=== PATIENT | male | born 1960 | race Caucasian/White ===

== ENCOUNTER 2019-12-02 08:06 | Observation (INO) | payer MEDICARE, MEDICAID, SELFPAY ==
--- NOTE | ~2019-12-02 | CT_ITS ---
EXAMINATION: CT pelvis w con DATE: 12/02/2019 11:05 INDICATION: Gluteal abscess TECHNIQUE: Computed tomography (CT) of the pelvis was performed without intravenous contrast. Automat ed exposure control and iterative reconstruction technique were employed. The dose-length product was 271.15 mGy-cm. COMPARISON: None FINDINGS: Perianal abscess centered posterior and to the left of the anus which measures 6 cm craniocaudally an d 8.6 x 5.0 cm in maximal transaxial dimensions. This includes a small curved portion of the abscess which extends from across the midline caudal to the level of the tip of the coccyx to the medial aspe ct of the inferior right gluteal cleft. The abscess appears to remain in the superficial perianal spa ce inferior to the inner coccygeal ligament which is bulged cephalad. No evident involvement of the d eeper perineopelvic spaces. There appears to be a small focus of gas distally over the expected posit ion of the left posterior wall of the anus and adjacent minute focus of gas within the perirenal flui d collection suggesting possibility of a perianal fistula to the abscess. Is normal. Prostatomegaly. The more proximal visualized bowels are normal. Small bilateral hydroceles. No pathologically enlarge d pelvic or inguinal lymphadenopathy. Moderate to severe lower lumbar facet osteoarthritis. Mild bila teral hip osteoarthritis. Small bone islands at the bilateral femoral heads. IMPRESSION: 1. 8.6 x 5.0 x 6.0 cm abscess in the left posterior superficial perianal space. Reviewed, dictated and finalized at location A. LE NURSE
--- NOTE | ~2019-12-02 | US_ITS ---
EXAMINATION: US percutaneous drain w cath DATE: 12/03/2019 13:07 INDICATION: Perianal abscess TECHNIQUE: The procedure including the risks and benefits was discussed with the patient. Risks discu ssed included bleeding including hemorrhage and bile peritonitis. Oral and written consent were obtai jennifer. The patient was confirmed to be receiving appropriate antibiotic coverage. The skin overlying t he buttock at the left side of the gluteal cleft was prepped and draped in usual sterile fashion. An esthetic was administered with 1% lidocaine subcutaneously. An 8.5 Fr catheter was inserted into the periapical fluid collection by trocar technique utilizing continuous sonographic observation. The me mirella stiffener and trocar needle were removed, and the pigtail tip was locked. Fluid was aspirated and sent for culture. The catheter was stitched to the skin with suture. Antibiotic appointment and a st erile dressing were applied. The catheter was then attached to suction drainage. There were no immedi ate complications. FINDINGS: Initial energy efficiency specialist ultrasound images demonstrate an approximately 8.1 x 5.1 cm complex loculated fluid collection with irregular lobular margins extending deep towards the perianal region. Subseque nt images demonstrate the drainage catheter advanced into the central aspect of the fluid collection. 20 mL of opaque parker purulent appearing fluid was aspirated and sent for culture. IMPRESSION: 1. Successful ultrasound-guided percutaneous abscess drainage catheter placement into an 8 x 5 cm per ianal abscess. 2. 20 mL of parker purulent appearing fluid was sent for Gram stain anaerobic and aerobic cultures. 3. The catheter will be managed by Dr. Chiu. Reviewed, dictated and finalized at location A. SURVEYOR IMPRESSION: 1. Successful ultrasound-guided percutaneous abscess drainage catheter placemen t into an 8 x 5 cm perianal abscess. 2. 20 mL of parker purulent appearing fluid was sent for Gram stain anaerobic and aerobic cultures. 3. The catheter will be managed by Dr. Chiu.
[2019-12-02 08:10] VITALS: BP 126/87; PULSE 95; RESP 17; TEMP 36.5; O2SAT 100
--- NOTE | 2019-12-02 09:16 | ED.GENADULT ---
HPI - General Adult General Chief complaint: Wound/Laceration Stated complaint: bump on butt x 2 days Time Seen by Provider: 12/02/19 08:40 Source: patient Mode of arrival: ambulatory Limitations: no limitations History of Present Illness HPI narrative: Patient presents with chief complaint of swollen painful area to the right gluteal cleft that has been present for 2 days. Patient states it is painful when he is lying or sitting on the area. Patient denies any fever, chills, nausea, vomiting, diarrhea. Patient denies having diabetes or compromised status. Patient states his only medical history is hypertension and hyperlipidemia. Patient denies a history of MRSA or prior recurrent abscesses. Related Data Home Medications Medication Instructions Recorded Confirmed lisinopril 10 mg PO DAILY 12/02/19 12/02/19 simvastatin 40 mg PO DAILY 12/02/19 12/02/19 Allergies Allergy/AdvReac Type Severity Reaction Status Date / Time Penicillins Allergy Unknown WAS CHILD, Verified 12/02/19 08:12 DOES NOT KNNOW Review of Systems Review of Systems: Narrative: CONSTITUTIONAL: Denies fever, chills, or sweats. EYES: Denies visual changes, redness, or discharge. ENT: Denies rhinorrhea, congestion, sore throat, or otalgia. CARDIOVASCULAR: Denies chest pain, palpitations, or edema. RESPIRATORY: Denies cough or dyspnea. GASTROINTESTINAL: Denies abdominal pain, nausea, vomiting, or diarrhea. GENITOURINARY: Denies dysuria or hematuria. SKIN: Reports abscess denies rash or itching. MUSCULOSKELETAL: Denies back pain, joint pain, or myalgia. NEUROLOGIC: Denies headache, numbness, dizziness, or weakness. PSYCHIATRIC: Denies anxiety or depression. 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 He wishes for his mother to be the social contact worker if he were not able to make decisions himself. Her name is Emma Cabello. He wishes to be a full code. Smoking packs per day: 1 Smoking cigarettes per day: 20.0 Years smoked: 20 Smoking pack-years: 20.00 Smoking status: Current every day smoker Tobacco type: cigarettes Alcohol intake: never Alcohol use details: denies Substance use: never Other substance usage details: denies Living arrangements: with family Additional living arrangements comments: Lives with his mother who is independent. Occupation/Education: retired Gender identity (if verbalized by the patient): Male Spiritual care concerns: No Agree to blood products: Yes Exam Narrative: Exam Narrative: GENERAL: Well-appearing, well-nourished, and in no acute distress. HEAD: Normocephalic, atraumatic. EYES: PERRLA and EOMI. ENT: Nares clear, no rhinorrhea or epistaxis. Mucous membranes moist. Oropharynx without tonsillar hypertrophy exudate or other lesions. Bilateral TMs pearly duran nonbulging NECK: Supple. No adenopathy or masses. CHEST: Clear to auscultation. No respiratory distress. No wheezes rales or rhonchi HEART: Regular rate and rhythm. Normal peripheral pulses. ABDOMEN: Soft, nontender, nondistended, normal active bowel sounds. EXTREMITIES: Normal range of motion. No edema. SKIN: abscess to right gluteal cleft palpated approx 3.5 cm feels deeper than right at surface level. Warm, dry, no rash. NEURO: No focal deficits. Alert and oriented x3. PSYCH: Normal mood and affect. Course Course Emergency Course: Bedside ultrasound to confirm location and size of abscess at bedside by Dr Lao. Abscess approx
[2019-12-02 10:30] LABS: Basophils Absolute Auto 0.1 K/mm3 (0.0-0.1); Basophils Percent Auto 0.4 % (0.2-1.2); Eosinophils Percent Auto 0.1 % (0-4.4); Hematocrit 43.9 % (42.0-52.0); Hemoglobin 14.8 g/dL (14.0-18.0); Immature Granulocyte Absolute 0.08 K/mm3 (0.00-0.031); Immature Granulocyte Percent A 0.5 % (0-0.5); Lymphocytes Absolute Auto 1.25 K/mm3 (0.9-3.2); Lymphocytes Percent Auto 8.3 % (18.3-44.2); Mean Corpuscular HGB Conc 33.7 g/dl (32-36); Mean Corpuscular Hemoglobin 32.1 pg (26-34); Mean Corpuscular Volume 95.2 fl (80-100); Mean Platelet Volume 11.7 fl (7.4-10.4); Monocytes Absolute Auto 1.4 K/mm3 (0.1-0.6); Monocytes Percent Auto 9.1 % (2.6-8.5); Neutrophils Absolute Auto 12.3 K/mm3 (1.3-6.7); Neutrophils Percent Auto 81.6 % (45.5-73.1); Platelet Count Result 158 k/mm3 (150-375); Red Blood Count 4.61 M/mm3 (4.6-6.20); Red Cell Distribution Width 11.9 % (11.5-14.5)
[2019-12-02 10:44] LABS: Alanine Aminotransferase 29 U/L (4-50); Albumin Level 3.7 g/dL (3.5-5.1); Alkaline Phosphatase 61 U/L (38-126); Aspartate Amino Transferase 32 U/L (17-59); Bilirubin,Total 1.1 mg/dL (0.2-1.3); Blood Urea Nitrogen 17 mg/dL (9-20); Calcium 8.4 mg/dL (8.4-10.2); Carbon Dioxide 25 mmol/L (22-30); Chloride 93 mmol/L (98-107); Estimated Glomerular Filt Rate > 60; Glucose 104 mg/dL (75-110); Potassium 4.4 mmol/L (3.4-5.0); Sodium 132 mmol/L (137-145)
[2019-12-02] MEDS: SODIUM CHLORIDE 0.9% IV 1,000 ML 125 ML IV CONT (12:43)
[2019-12-02 12:50] VITALS: BP 124/66; PULSE 77; RESP 16; TEMP 36.4; O2SAT 100
--- NOTE | 2019-12-02 13:02 | PM.IMHP ---
H&P: HPI History of Present Illness Chief complaint: perianal abscess Narrative: Gómez Cabello is a 59 year old male with a history of hypertension and hyperlipidemia, who presented to the emergency department with complaints of perianal pain. The patient reports first noticing symptoms 2 days ago with a sudden onset of pain. He states it was painful to walk or sit. He also felt that there was a bump on his buttock. There was nothing that would alleviate the pain and he eventually decided to present to the emergency department for further evaluation. On evaluation, he had evidence of a perianal abscess and the emergency room provider attempted a bedside ultrasound-guided incision and drainage, but was unable to reach any pocket of purulent drainage. CT scan of the pelvis was then performed and showed an 8.6 x 5.0 x 6.0 cm abscess in the left posterior superficial perianal space. White blood cell count was 15,000, otherwise labs were unremarkable. Our service was contacted for surgical evaluation of the perianal abscess. The decision was made to admit the patient for observation and start him on IV antibiotics and IV fluids. He is currently still NPO. The patient is now being seen in the emergency department. He denies any pain at this time following the local anesthetic given for the bedside procedure. He reports that sitting and walking was aggravating his pain. He denies any drainage from the bump he had felt. He denies a change in his bowel habits, diarrhea, nausea, vomiting, constipation, blood in the stool, fevers, or chills. He reports his last bowel movement was this morning. Denies a change in appetite. Reports last meal was yesterday. Denies a history of perianal abscess or any abscesses in other locations. Denies a history of MRSA. No other complaints at this time. Review of Systems Constitutional: Constitutional: Reports as per HPI, Denies chills, Denies excessive sweating, Denies fatigue, Denies fever(s) and Denies weakness Eyes: Eyes: Denies change in vision and Denies loss of vision ENT: Denies dysphagia, Denies dizziness, Denies dry mouth, Denies hearing loss and Denies lip swelling Cardiovascular: Cardiovascular: Denies chest pain, Denies syncope, Denies radiating jaw, neck or arm pain, Denies dyspnea and Denies dyspnea on exertion Respiratory: Respiratory: Denies cough, Denies dyspnea, Denies dyspnea on exertion and Denies wheezing Gastrointestinal: Gastrointestinal: Denies abdominal pain, Denies melena, Denies bloating, Denies hematochezia, Denies change in bowel habits, Denies change in stool character, Denies constipation, Denies dysphagia, Denies fecal incontinence, Denies diarrhea, Denies nausea and Denies vomiting Musculoskeletal: Musculoskeletal: Denies abnormal gait, Denies myalgias, Denies deformity, Denies joint swelling and Denies tingling Integumentary/Breasts: Skin/Breast: Reports system reviewed and no additional complaints, except as docu, Reports as per HPI and Reports other (Reports perirectal pain and bump near that area.) Neurologic: Denies abnormal gait, Denies dizziness, Denies syncope, Denies loss of vision, Denies tingling and Denies weakness Psychiatric: Psychiatric: Reports no additional psychiatric complaints, Denies anxiety and Denies depression Endocrine: Endocrine: Reports no additional endocrine complaints, Denies cold intolerance, Denies excessive sweating and Denies heat intolerance PMFSH Past Medical History Medical History (Updated 12/02/19 @ 15:58 by FELY Penny) Hyperlipidemia Hypertension Surgical History Surgical History (Updated 12/02/19 @ 13:35 by FELY Penny) No history of previous surgery Family History Family History (Updated 12/02/19 @ 13:51 by Catherine Retana RN) Other No significant family history Social History Social History Social History: The patient does not have a power of attorn
--- NOTE | 2019-12-02 13:06 | PC.NURSE ---
Report given to Radha, RN 3rd Med RN at this time. No further questions at this time.
--- NOTE | 2019-12-02 13:25 | ADMGEN ---
This patient, Gómez Cabello, was admitted to Medical Room 342-01. Patient arrived to unit per wheelchair. Patient/family oriented to hospital policies and general routines including ID bracelet, bed and alarms, visiting hours, pain management, procedures, bathroom and other care routines, personal items, smoking policy, room service/diet, and visiting hours. Valuables list has been completed. Information on how to activate the Rapid Response Team has been discussed. Patient/Family are encouraged to report perceived risks to care and to ask questions if they do not understand what they are told or what they should do.
[2019-12-02 13:37] VITALS: BP 128/71; PULSE 81; RESP 22; TEMP 35.9; O2SAT 100; BMI 24.3
[2019-12-02 22:00] VITALS: BP 103/66; PULSE 84; RESP 16; TEMP 37.4; O2SAT 98
[2019-12-03] MEDS: SODIUM CHLORIDE 0.9% IV 1,000 ML 125 ML IV CONT (04:28)
[2019-12-03 06:00] VITALS: BP 125/86; PULSE 89; RESP 22; TEMP 36.7; O2SAT 100
--- NOTE | 2019-12-03 06:10 | PC.NURSE ---
intake before midnoc
[2019-12-03 06:20] LABS: Basophils Absolute Auto 0.1 K/mm3 (0.0-0.1); Basophils Percent Auto 0.4 % (0.2-1.2); Eosinophils Percent Auto 0.2 % (0-4.4); Hemoglobin 13.6 g/dL (14.0-18.0); Immature Granulocyte Absolute 0.13 K/mm3 (0.00-0.031); Lymphocytes Absolute Auto 0.92 K/mm3 (0.9-3.2); Lymphocytes Percent Auto 7.4 % (18.3-44.2); Mean Corpuscular HGB Conc 33.2 g/dl (32-36); Mean Corpuscular Hemoglobin 31.9 pg (26-34); Mean Platelet Volume 12.2 fl (7.4-10.4); Monocytes Absolute Auto 1.2 K/mm3 (0.1-0.6); Monocytes Percent Auto 9.7 % (2.6-8.5); Neutrophils Absolute Auto 10.1 K/mm3 (1.3-6.7); Neutrophils Percent Auto 81.3 % (45.5-73.1); Platelet Count Result 158 k/mm3 (150-375); Red Blood Count 4.27 M/mm3 (4.6-6.20); Red Cell Distribution Width 11.9 % (11.5-14.5); White Blood Count 12.4 K/mm3 (4.5-10.0)
--- NOTE | 2019-12-03 09:17 | PM.PNGS ---
Progress Note: A&P Assessment and Plan (1) Perirectal abscess: Onset Date: ~12/01/19 Code(s): K61.1 - Rectal abscess Status: Acute Assessment and Plan: After rectal is rectal exam showed no palpable mucosal lesion or mass I think perhaps the best way to drain this will be percutaneous with CT guidance. I have discussed this with Dr. andriy muhammad and he will try to accomplish this today. We will then continue the patient on antibiotics and follow up as an outpatient to either remove drain or perform a examination under anesthesia, rigid sigmoidoscopy, and examination for a fistula. Will see how drainage goes and proceed from there. Most likely the patient would go home with the drain on oral antibiotics. We would adjust his antibiotics next week depending on cultures. (2) Hypertension: Onset Date: Unknown Qualifiers: Hypertension type: unspecified Qualified Code(s): I10 - Essential (primary) hypertension Code(s): I10 - Essential (primary) hypertension Status: Acute Assessment and Plan: Continue home meds (3) Hyperlipidemia: Onset Date: Unknown Qualifiers: Hyperlipidemia type: unspecified Qualified Code(s): E78.5 - Hyperlipidemia, unspecified Code(s): E78.5 - Hyperlipidemia, unspecified Status: Acute Assessment and Plan: Continue home meds Subjective Subjective Date/Time Seen: 12/03/19 09:17 Patient denies much pain this morning. States that he had 1 loose stool overnight. I specifically asked him today if he was using his finger to empty his rectum or manipulating the area. He denied this to me. However, the nurse reports to me that the aids have stated that they notice that he had stool over his fingers several times during the night. They had to use a special techniques on cleaning his fingers this morning after or before his shower. Review of Systems Constitutional: Constitutional: Reports no additional constitutional complaints ENT: Reports other (Mucous Membranes moist.) Cardiovascular: Cardiovascular: Denies dyspnea Respiratory: Respiratory: Denies pain on inspiration and Denies dyspnea Musculoskeletal: Musculoskeletal: Reports other (No calf swelling or edema) Integumentary/Breasts: Skin/Breast: Reports system reviewed and no additional complaints, except as docu Exam Const: General: cooperative, no acute distress, alert and awake Orientation/consciousness: patient oriented x3 HENMT: Mouth: Yes moist mucous membranes Other: Patient only has 1 front tooth on the right with 2 on the left. Poor dental hygiene noted. Neck: Neck: normal visual inspection Chest: Chest palpation & inspection: normal inspection of the chest Resp: Effort & Inspection: normal respiratory effort Auscultation: clear to auscultation bilaterally Cardio: Jugular venous distension: no JVD Rate: regular rate Rhythm: regular rhythm GI: Rectal Exam: visual inspection normal, normal sphincter tone (No palpable anal abnormalities.), No External hemorrhoid(s) present, No Internal hemorrhoid(s) present and No Anal fissure(s) present Other: Prostate is 2+ over 4 enlarged but soft without hard nodules Right side of rectum is unremarkable left side has perhaps slight bulging externally but no palpable rectal mass on the lining. Patient has mild tenderness when pushing toward the left side on digital rectal exam. Skin: Wounds: wounds noted (There is approximately a 2 cm wound just off the crease, left) Other: Wound mentioned above was from attempted I and D in the ER yesterday. Neuro: General: patient oriented x3 and moves all extremities Speech: normal speech Extrem: General: normal exam except as noted Psych: Mental Status: mental status grossly normal Speech and movement: Normal speech and movement present Affect: normal affect Thought content: Yes Normal thought content present Objective Data Vital Signs Vital Signs: Vital
[2019-12-03 10:26] LABS: INR 1.3; Prothrombin Time 15.4 Seconds (11.1-14.7)
[2019-12-03 14:00] VITALS: BP 101/61; PULSE 79; RESP 16; TEMP 37; O2SAT 99
--- NOTE | 2019-12-03 16:34 | PM.DS ---
DS: Diagnosis Admitting Diagnosis Admitting Diagnosis: Perirectal abscess Discharge Diagnosis (1) Perirectal abscess: Onset Date: ~12/01/19 Code(s): K61.1 - Rectal abscess Status: Acute Assessment and Plan: this was somewhat unusual a deep abscess that was presenting in the soft tissues posterior into the left of the rectum. Initial attempted I and D in the ER did not lead to appropriate drainage. Therefore the patient was admitted started on antibiotics and I further evaluated the patient. After thorough evaluation and since there was not a good pathway externally to the area of abscess it infrastructure manager radiologist agreed to place a percutaneous drain into the area. Plan will be to leave this in place until there is basically no drainage and treat with antibiotics even past removal of the drain. (2) Hypertension: Onset Date: Unknown Qualifiers: Hypertension type: unspecified Qualified Code(s): I10 - Essential (primary) hypertension Code(s): I10 - Essential (primary) hypertension Status: Acute Assessment and Plan: This was not really addressed during the patient's admission he had relatively normal blood pressures were out the admission. (3) Hyperlipidemia: Onset Date: Unknown Qualifiers: Hyperlipidemia type: unspecified Qualified Code(s): E78.5 - Hyperlipidemia, unspecified Code(s): E78.5 - Hyperlipidemia, unspecified Status: Acute Assessment and Plan: Patient will resume his usual medications. DS: Summary Hospital Course Reason for hospitalization: perirectal abscess with leukocytosis Hospital Course: patient was admitted after the abscess was unable to be adequately drained in the ED. He was started on Zosyn and had no trouble tolerating this even though he had a questionable history of a penicillin allergy when he was a child. He received several doses during his admission and did not have any adverse reactions we can tell. Thorough evaluation of his CT scan and examination revealed there was induration on the left side of the crease between is coccyx and his anus however no obvious pointing of the abscess to the external surfaces. Because of this I talked with our invasive radiologist and they were willing to place a per kg is changes drain into the center of this 6 x 5 cm abscess. Will use this for drainage in treat with antibiotics and follow the patient up as an outpatient. It was noted while the patient was in that he was manipulating his the anal area and possibly the rectum with his fingers and that he had fairly long fingernails. I did have a thorough discussion with before discharge that he should leave the catheter alone and that he should stop manipulating the anal area. I did prior to lead talk with his 80-year-old mother regarding this and she will help remind him not to manipulate her try to pull on the drainage catheter. She will also be helping empty the catheter. The nurses have been teaching him how to take care of the percutaneous drainage system. The will go over this again before discharge and he will be followed up in the office in approximately 6 days. Status at Discharge Cognitive/behavioral status at discharge: He seems to be exhibiting some element of obsessive-compulsive behaviors or other need for psychological evaluation and treatment. Patient did promise me that he would not pull on the percutaneous drainage catheter any understands that it is sutured to his skin. Nurses on and the tacks on the floor observed him multiple times either automatically or unconscious sleep manipulating his anal area. They would have to help him wash his hands after it he did this. Functional status at discharge: independent ambulation Overall status at discharge: patient is not back to baseline ( Has a percutaneous drainage catheter into a perirectal abscess.) Time Spent with Patient Time attestation: Total
[2019-12-03 17:12] LABS: Lactic Acid 0.8 mmol/L (0.7-2.1)
--- NOTE | 2019-12-03 17:48 | PC.NURSE ---
Pt and family educated on how to care for the drain. As well as the importance of not touching the drain site or his rectum unnecessarily. Supplies given to patient and family along with paper instructions on how/when to clean/care for the site. Patient says he will leave his bottom alone, and understands that if he does not that the infection could take longer to heal.
== END 2019-12-03 17:52 | disposition home or self-care (01) ==
LOC: ANHED 12:23 → ANH3MED 12:46
PROVIDERS: Nurse Practitioner Family; Physician Assistant; Radiology Diagnostic Radiology; Admitting Provider Surgery; Emergency Provider Emergency Medicine; PCP Internal Medicine Infectious Disease; Visit Provider Surgery
DX: K61.1 Rectal abscess (principal); I10 Essential (primary) hypertension; E78.5 Hyperlipidemia, unspecified; F17.210 Nicotine dependence, cigarettes, uncomplicated; Z88.0 Allergy status to penicillin; Z79.899 Other long term (current) drug therapy
CPT/HCPCS: 36415; 46040; 72193; 75989; 80053; 83605; 85025; 85610; 87070; 87075; 87077; 87186; 87205; 96361; 96365; 96367; 96375; 99285; G0378; J0131; J2543; J7030; Q9967

== ENCOUNTER 2019-12-16 09:17 | Outpatient (CLI) | payer MEDICARE, SELFPAY ==
[2019-12-16 10:03] LABS: Basophils Absolute Auto 0.1 K/mm3 (0.0-0.1); Basophils Percent Auto 0.7 % (0.2-1.2); Eosinophils Percent Auto 0.4 % (0-4.4); Hematocrit 47.8 % (42.0-52.0); Hemoglobin 15.5 g/dL (14.0-18.0); Immature Granulocyte Absolute 0.02 K/mm3 (0.00-0.031); Immature Granulocyte Percent A 0.2 % (0-0.5); Lymphocytes Absolute Auto 1.58 K/mm3 (0.9-3.2); Lymphocytes Percent Auto 19.7 % (18.3-44.2); Mean Corpuscular HGB Conc 32.4 g/dl (32-36); Mean Corpuscular Hemoglobin 31.5 pg (26-34); Mean Corpuscular Volume 97.2 fl (80-100); Mean Platelet Volume 10.5 fl (7.4-10.4); Monocytes Absolute Auto 0.6 K/mm3 (0.1-0.6); Monocytes Percent Auto 7.4 % (2.6-8.5); Neutrophils Absolute Auto 5.7 K/mm3 (1.3-6.7); Neutrophils Percent Auto 71.6 % (45.5-73.1); Platelet Count Result 271 k/mm3 (150-375); Red Blood Count 4.92 M/mm3 (4.6-6.20); Red Cell Distribution Width 12.8 % (11.5-14.5)
== END 2019-12-16 09:18 | disposition home or self-care (01) ==
LOC: ANHLAB 09:21
PROVIDERS: PCP Internal Medicine Infectious Disease; Visit Provider Surgery
DX: K61.1 Rectal abscess (principal)
CPT/HCPCS: 36415; 85025

== ENCOUNTER 2020-05-12 10:34 | Outpatient (CLI) | payer MEDICARE, SELFPAY ==
--- NOTE | ~2020-05-12 | CT_ITS ---
EXAMINATION: CT lung screening DATE: 05/12/2020 11:31 INDICATION: Personal history of nicotine dependence, 32 pack year history TECHNIQUE: Computed tomography (CT) of the chest was performed without intravenous contrast. The dose -length product (DLP) was 90.36 mGy-cm. Automated exposure control and iterative reconstruction techn ique were employed. COMPARISON: None FINDINGS: There is mild emphysema. No suspicious pulmonary nodule is identified. Dependent atelectasi s is noted. There is no pleural effusion or pneumothorax. No pathologically enlarged thoracic lymph n odes are identified. The heart size is normal. There is calcified coronary artery atherosclerosis. Th ere is mild thoracic spondylosis. IMPRESSION: 1. Lung-RADS category 1: Negative. Continue annual screening with noncontrast low-dose chest CT in 12 months. Reviewed, dictated and finalized at location A. IMPRESSION: 1. Lung-RADS category 1: Negative. Continue annual screening with noncontrast l ow-dose chest CT in 12 months.
== END 2020-05-12 10:35 | disposition home or self-care (01) ==
LOC: ANHIMG 10:36
PROVIDERS: PCP Internal Medicine Infectious Disease; Visit Provider Internal Medicine Infectious Disease
DX: Z87.891 Personal history of nicotine dependence (principal)
CPT/HCPCS: G0297